=== PATIENT | female | born 1960 | race Caucasian/White ===

== ENCOUNTER → 2018-07-02 | Outpatient (CLI) | payer BC, OTHER ==
[~2018-07-02] MED LIST: DAR100 PO; IBU600 PO; IRON; PROGESTERONE
--- NOTE | 2018-07-02 13:30 | RADIOLOGY IMAGING REPORT ---
FACILITY: [facility] PATIENT NAME: ALONZO ARMENTA : [id number] MR: [id number]: [id number] EXAM DATE: [id number] ORDERING PHYSICIAN: CHAITANYA MONIQUE TECHNOLOGIST: Janice Ghosh PROCEDURE:BILATERAL DIGITAL SCREENING MAMMOGRAM WITH CAD ASSISTED INTERPRETATION & 3D TOMOSYNTHESIS COMPARISON:Prior mammograms dated 09/20/16, 09/08/15, 09/06/14, 10/19/11 INDICATIONS:SCREENING FINDINGS: Scattered fibroglandular densities are seen in both breasts. The parenchymal pattern has remained stable allowing for difference in mammographic technique & patient positioning. DIAGNOSTIC CATEGORY 1--NEGATIVE. RECOMMENDATIONS: ROUTINE MAMMOGRAM AND CLINICAL EVALUATION. IMPRESSION: BIRADS 1: Negative. No significant abnormality is seen. Dictated by: Nika Jenkins M.D. on 07/02/2018 at 13:22 Transcribed by: [email or web address] on 07/02/2018 at 13:24 Approved by: Nika Jenkins M.D. on 07/02/2018 at 13:28 [facility]
== END ==
LOC: MAMO 00:50
PROVIDERS: ATTEND Nurse Practitioner
DX: Z12.31 Encounter for screening mammogram for malignant neoplasm of breast (principal)
CPT/HCPCS: 77063; 77067